=== PATIENT | female | born 1945 | race Hispanic/Latino ===

== ENCOUNTER 2019-08-24 16:06 | Emergency (ER) | payer MEDICARE, OTHER ==
[2019-08-24] MEDS ORDERED: ACETAMINOPHEN 325 MG TAB ONE (16:56)
[2019-08-24] MEDS ORDERED: CEPHALEXIN 500 MG CAPSULE ONE (16:56)
[2019-08-24] MEDS ORDERED: TETANUS/DIPHTHERIA TOXOID [ADULT] 0.5 ML VIAL IM ONE (16:57)
== END 2019-08-24 17:09 | disposition home or self-care (01) ==
LOC: EDH 16:06
DX: S91.331A Puncture wound without foreign body, right foot, initial encounter (principal); S90.31XA Contusion of right foot, initial encounter; Z72.0 Tobacco use; Z79.899 Other long term (current) drug therapy; W26.0XXA Contact with knife, initial encounter; Y93.89 Activity, other specified; Y92.89 Other specified places as the place of occurrence of the external cause; Y99.8 Other external cause status
CPT/HCPCS: 73630; 90471; 90714

== ENCOUNTER → 2020-12-22 | Outpatient (CLI) | payer MEDICARE, OTHER ==
[2020-12-22 09:59] LABS: INR 1.05 (0.85-1.15); PROTHROMBIN TIME 11.4 SEC (9.6-11.6)
[2020-12-22 10:00] LABS: PARTIAL THROMBOPLASTIN TIME 28.8 SEC (26.3-35.5)
== END | disposition home or self-care (01) ==
LOC: RAH 08:54
PROVIDERS: ATTEND Internal Medicine
DX: E04.2 Nontoxic multinodular goiter (principal); Z79.01 Long term (current) use of anticoagulants
CPT/HCPCS: 10005; 10006; 36415; 76942; 85610; 85730

== ENCOUNTER 2021-12-11 08:39 | Emergency (ER) | payer MEDICARE, OTHER ==
[~2021-12-11] VITALS: Ht 152.4 cm; Wt 81.6 kg
[2021-12-11 09:10] LABS: BASOPHILS % (AUTO) 0.4 % (0.0-5.0); EOSINOPHILS % (AUTO) 1.9 % (0.0-8.0); HEMATOCRIT 40.6 % (36-48); LYMPHOCYTES % (AUTO) 27.8 % (21.0-51.0); MEAN CORPUSCULAR HEMOGLOBIN 29.6 pg (27.0-33.0); MEAN CORPUSCULAR VOLUME 89.8 fL (79-99); MONOCYTES % (AUTO) 6.4 % (3.0-13.0); NEUTROPHILS % (AUTO) 63.1 % (40.0-77.0); PLATELET COUNT (AUTO) 230 K/uL (130-400); RED BLOOD CELL COUNT(AUTO) 4.52 MIL/uL (4.00-5.50); RED CELL DISTRIBUTION WIDTH 14.6 % (11.0-15.5); WHITE BLOOD COUNT (AUTO) 8.4 K/uL (4.8-10.8)
[2021-12-11] MEDS ORDERED: SUCRALFATE 1 GM TABLET ONE (09:12)
[2021-12-11] MEDS ORDERED: FAMOTIDINE 20MG VIAL IV ONE ×2 (09:13→09:30)
[2021-12-11] MEDS ORDERED: SUCRALFATE 1 GM TABLET PO SCH (09:30)
[2021-12-11 09:31] LABS: CARBON DIOXIDE 28 mmol/L (21-32); CHLORIDE 105 mmol/L (101-111); CREATININE 0.7 mg/dL (0.5-1.5); GLOMERULAR FILTR. RATE CALC 87 mL/min (>60); GLUCOSE,RANDOM 132 mg/dL (70-105); POTASSIUM 3.9 mmol/L (3.5-5.1); SODIUM SERUM 141 mmol/L (136-145); UREA NITROGEN, BLOOD 14 mg/dL (7-18)
[2021-12-11 09:36] LABS: ALANINE AMINOTRANSFERASE 66 U/L (12-78); ALBUMIN 3.7 g/dL (3.5-5.0); ASPARTATE AMINOTRANSFERASE 86 U/L (10-37); TOTAL PROTEIN, SERUM 7.5 g/dL (6.0-8.3)
[2021-12-11] MEDS ORDERED: MAG/ALUM/SIMETH 30 ML UDCUP PO ONE (10:00)
[2021-12-11] MEDS ORDERED: HYOSCYAMINE SULFATE 0.125 MG TAB.SUBL SL SCH (10:00)
[2021-12-11] MEDS ORDERED: PANTOPRAZOLE 40 MG/VIAL IVP ONE (10:00)
[2021-12-11] MEDS ORDERED: ONDANSETRON 4MG INJ ONE (10:45)
[2021-12-11] MEDS ORDERED: MORPHINE 2 MG SYG ONE (10:45)
[2021-12-11] MEDS ORDERED: ONDANSETRON 4MG INJ IVP ONE (11:00)
[2021-12-11] MEDS ORDERED: MORPHINE 2 MG SYG IVP ONE (11:00)
[2021-12-11] MEDS ORDERED: HYOS0.124 SL (14:24)
[2021-12-11] MEDS ORDERED: SUCR1TAB28 PO (14:24)
[2021-12-11 14:51] VITALS: BP 144/76
== END 2021-12-11 14:52 | disposition home or self-care (01) ==
LOC: EDH 08:39
DX: R10.13 Epigastric pain (principal); T40.2X5A Adverse effect of other opioids, initial encounter; Y92.89 Other specified places as the place of occurrence of the external cause
CPT/HCPCS: 99285; 96374; 96375; 71045; 83735; 84484 ×2; 80053; 83880; 85025; 36415; 93005 ×2; J3490; J2405; C9113

== ENCOUNTER 2022-02-12 20:22 | Emergency (ER) | payer OTHER ==
[~2022-02-12] VITALS: Ht 152.4 cm; Wt 80.7 kg
[~2022-02-12 20:22] MED LIST: HYOS0.124 SL; SUCR1TAB28 PO
[2022-02-12 20:51] LABS: BASOPHILS % (AUTO) 0.5 % (0.0-5.0); HEMATOCRIT 41.6 % (36-48); LYMPHOCYTES % (AUTO) 23.4 % (21.0-51.0); MEAN CORPUSCULAR HEMOGLOBIN 29.4 pg (27.0-33.0); MEAN CORPUSCULAR HGB CONC 32.9 g/dL (32.0-36.0); MEAN CORPUSCULAR VOLUME 89.3 fL (79-99); MONOCYTES % (AUTO) 9.7 % (3.0-13.0); PLATELET COUNT (AUTO) 253 K/uL (130-400); RED BLOOD CELL COUNT(AUTO) 4.66 MIL/uL (4.00-5.50); RED CELL DISTRIBUTION WIDTH 14.1 % (11.0-15.5); WHITE BLOOD COUNT (AUTO) 11.4 K/uL (4.8-10.8)
[2022-02-12 21:00] LABS: CREATININE 0.9 mg/dL (0.5-1.5); POTASSIUM 3.6 mmol/L (3.5-5.1)
[2022-02-12 21:04] LABS: ALBUMIN 3.9 g/dL (3.5-5.0); TOTAL PROTEIN, SERUM 7.8 g/dL (6.0-8.3)
[2022-02-12] MEDS ORDERED: ONDANSETRON 4MG INJ ONE (21:22)
[2022-02-12] MEDS ORDERED: HYDROMORPHONE 0.5 MG SYG (0.5MG/0.5ML) IVP ONE (21:30)
[2022-02-12] MEDS ORDERED: ONDANSETRON 4MG INJ IVP ONE (21:30)
[2022-02-12] MEDS ORDERED: IBUP-1493 PO (22:12)
[2022-02-12 22:24] VITALS: BP 165/70
== END 2022-02-12 22:48 | disposition home or self-care (01) ==
LOC: EDH 20:22
DX: M54.42 Lumbago with sciatica, left side (principal); E11.9 Type 2 diabetes mellitus without complications; E78.00 Pure hypercholesterolemia, unspecified; I10 Essential (primary) hypertension; Z90.49 Acquired absence of other specified parts of digestive tract; Z90.710 Acquired absence of both cervix and uterus; Z95.1 Presence of aortocoronary bypass graft
CPT/HCPCS: 99284; 74176; 96374; 96375; 80053; 83690; 85025; 36415; J2405; J1170

== ENCOUNTER → 2022-03-06 | Outpatient (CLI) | payer OTHER ==
[~2022-03-06] MED LIST changes: +IBUP-1493 PO
== END | disposition home or self-care (01) ==
LOC: RAH 10:15
PROVIDERS: ATTEND Internal Medicine
DX: E04.2 Nontoxic multinodular goiter (principal)
CPT/HCPCS: 76536

== ENCOUNTER 2022-09-24 09:43 | Emergency (ER) | payer OTHER ==
[~2022-09-24] VITALS: Ht 152.4 cm; Wt 78.9 kg
[2022-09-24 10:22] LABS: BASOPHILS % (AUTO) 0.7 % (0.0-5.0); EOSINOPHILS % (AUTO) 2.9 % (0.0-8.0); HEMATOCRIT 45.2 % (36-48); LYMPHOCYTES % (AUTO) 38.3 % (21.0-51.0); MEAN CORPUSCULAR HEMOGLOBIN 28.9 pg (27.0-33.0); MEAN CORPUSCULAR HGB CONC 32.5 g/dL (32.0-36.0); MEAN CORPUSCULAR VOLUME 88.8 fL (79-99); MONOCYTES % (AUTO) 7.1 % (3.0-13.0); NEUTROPHILS % (AUTO) 50.7 % (40.0-77.0); PLATELET COUNT (AUTO) 244 K/uL (130-400); RED BLOOD CELL COUNT(AUTO) 5.09 MIL/uL (4.00-5.50); RED CELL DISTRIBUTION WIDTH 14.6 % (11.0-15.5); WHITE BLOOD COUNT (AUTO) 7.6 K/uL (4.8-10.8)
[2022-09-24 10:36] LABS: CREATININE 0.8 mg/dL (0.5-1.5); POTASSIUM 4.1 mmol/L (3.5-5.1); TOTAL PROTEIN, SERUM 7.3 g/dL (6.0-8.3)
[2022-09-24 10:40] LABS: APPEARANCE,URINE CLOUDY (CLEAR); BILIRUBIN,URINE NEGATIVE (NEGATIVE); COLOR,URINE LIGHT-ORANGE (YELLOW); GLUCOSE, URINE (UA) NEGATIVE (NEGATIVE); KETONES,URINE NEGATIVE (NEGATIVE); LEUKOCYTE ESTERASE ,URINE NEGATIVE Leu/uL (NEGATIVE); NITRATE,URINE NEGATIVE (NEGATIVE); OCCULT BLOOD,URINE LARGE (NEGATIVE); PROTEIN,URINE 50 mg/dL (NEGATIVE); UROBILINOGEN,URINE 0.2 mg/dL (0.2-1.0)
[2022-09-24 10:43] LABS: BACTERIA,URINE RARE /HPF (None Seen); CALCIUM OXALATE CRYSTALS,UR MANY /LPF (None Seen); MUCUS,URINE RARE LPF (None Seen); RBC,URINE TNTC /HPF (0-1); SQUAMOUS EPITHELIAL CELL,UR RARE /HPF (0-2); TRANSITIONAL EPI CELLS,URINE RARE /HPF (None Seen)
[2022-09-24] MEDS ORDERED: MORPHINE 4 MG SYG ONE (11:09)
[2022-09-24] MEDS ORDERED: ONDANSETRON 4MG INJ ONE (11:09)
[2022-09-24] MEDS ORDERED: ONDANSETRON 4MG INJ IVP ONE (11:30)
[2022-09-24] MEDS ORDERED: MORPHINE 4 MG SYG IM ONE (11:30)
[2022-09-24] MEDS ORDERED: KETOROLAC 30MG VIAL (30MG/ML) IVP ONE (12:30)
[2022-09-24] MEDS ORDERED: TAMS-1 PO (12:53)
[2022-09-24] MEDS ORDERED: KETO10TA2 PO (12:53)
[2022-09-24 13:43] VITALS: BP 153/70
[2022-09-24] MEDS ORDERED: TRAM50TA4 PO (13:46)
== END 2022-09-24 13:59 | disposition home or self-care (01) ==
LOC: EDH 09:43
DX: N13.2 Hydronephrosis with renal and ureteral calculous obstruction (principal); E11.9 Type 2 diabetes mellitus without complications; E78.00 Pure hypercholesterolemia, unspecified; I10 Essential (primary) hypertension; Z79.1 Long term (current) use of non-steroidal anti-inflammatories (NSAID); Z90.49 Acquired absence of other specified parts of digestive tract
CPT/HCPCS: 99285; 74176; 96374; 71045; 96375; 84484; 80053; 85025; 87088; 83605; 81001; 36415; 93005; J2405; J2270; J1885

== ENCOUNTER 2022-11-24 16:13 | Emergency (ER) | payer OTHER ==
[~2022-11-24] VITALS: Ht 152.4 cm; Wt 78.0 kg
[~2022-11-24 16:13] MED LIST changes: +KETO10TA2 PO; +TAMS-1 PO; +TRAM50TA4 PO
[2022-11-24 16:14] VITALS: BP 152/59
[2022-11-24 16:53] LABS: APPEARANCE,URINE CLOUDY (CLEAR); BILIRUBIN,URINE NEGATIVE (NEGATIVE); COLOR,URINE YELLOW (YELLOW); GLUCOSE, URINE (UA) NEGATIVE (NEGATIVE); KETONES,URINE NEGATIVE (NEGATIVE); LEUKOCYTE ESTERASE ,URINE 250 Leu/uL (NEGATIVE); NITRATE,URINE NEGATIVE (NEGATIVE); OCCULT BLOOD,URINE NEGATIVE (NEGATIVE); PH,URINE 5.5 (5.0-8.0); PROTEIN,URINE NEGATIVE (NEGATIVE); UROBILINOGEN,URINE 0.2 mg/dL (0.2-1.0)
[2022-11-24 17:32] LABS: MUCUS,URINE RARE LPF (None Seen); SQUAMOUS EPITHELIAL CELL,UR FEW /HPF (0-2)
== END 2022-11-24 16:44 | disposition home or self-care (01) ==
LOC: EDH 16:13
DX: R10.13 Epigastric pain (principal); Z53.21 Procedure and treatment not carried out due to patient leaving prior to being seen by health care provider
CPT/HCPCS: 81001; 87088; 99281

== ENCOUNTER 2023-01-28 19:11 | Emergency (ER) | payer OTHER ==
[~2023-01-28] VITALS: Ht 152.4 cm; Wt 78.5 kg
[2023-01-28 19:13] VITALS: BP 145/73; PULSE 87; RESP 16
[2023-01-29] MEDS ORDERED: GABA-529 PO (17:27)
== END 2023-01-28 21:53 | disposition left against medical advice (07) ==
LOC: EDH 19:11
DX: R26.2 Difficulty in walking, not elsewhere classified (principal); M79.605 Pain in left leg; M79.604 Pain in right leg; Z53.21 Procedure and treatment not carried out due to patient leaving prior to being seen by health care provider

== ENCOUNTER 2023-01-29 08:36 | Emergency (ER) | payer OTHER ==
[~2023-01-29] VITALS: Ht 152.4 cm; Wt 78.5 kg
[2023-01-29] MEDS ORDERED: HYDROCODONE/ACETAMINOPHEN 5/325 MG TAB PO ONE (12:00)
[2023-01-29 12:06] LABS: BASOPHILS # (AUTO) 0.04 K/uL (0.00-0.20); BASOPHILS % (AUTO) 0.6 % (0.0-5.0); EOSINOPHILS # (AUTO) 0.18 K/uL (0.00-0.70); EOSINOPHILS % (AUTO) 2.6 % (0.0-8.0); HEMATOCRIT 37.9 % (36-48); IMMATURE GRANULOCYTE ABSOLUTE 0.02 K/uL (0-1); LYMPHOCYTES # (AUTO) 2.3 K/uL (1.0-4.8); LYMPHOCYTES % (AUTO) 33.4 % (21.0-51.0); MEAN CORPUSCULAR HGB CONC 33.5 g/dL (32.0-36.0); MEAN CORPUSCULAR VOLUME 89.4 fL (79-99); MONOCYTES # (AUTO) 0.8 K/uL (0.1-1.0); MONOCYTES % (AUTO) 11.1 % (3.0-13.0); NEUTROPHILS # (AUTO) 3.6 K/uL (1.8-7.7); PLATELET COUNT (AUTO) 254 K/uL (130-400); RED BLOOD CELL COUNT(AUTO) 4.24 MIL/uL (4.00-5.50); RED CELL DISTRIBUTION WIDTH 13.7 % (11.0-15.5); WHITE BLOOD COUNT (AUTO) 6.8 K/uL (4.8-10.8)
[2023-01-29 12:18] LABS: CREATININE 0.6 mg/dL (0.5-1.5); POTASSIUM 3.8 mmol/L (3.5-5.1)
[2023-01-29 12:22] LABS: BILIRUBIN,TOTAL 0.3 mg/dL (0.2-1.0); TOTAL PROTEIN, SERUM 6.9 g/dL (6.0-8.3)
[2023-01-29] MEDS ORDERED: MAG/ALUM/SIMETH 30 ML UDCUP PO ONE (13:30)
[2023-01-29] MEDS ORDERED: ASPIRIN 325MG TAB PO ONE (13:30)
[2023-01-29] MEDS ORDERED: IOHEXOL 350 MG/ML 100ML INFUS..BTL IV ONE (14:28)
[2023-01-29 16:55] VITALS: BP 129/63; PULSE 74; RESP 17; O2SAT 97
[2023-01-29] MEDS ORDERED: GABA-529 PO (17:27)
== END 2023-01-29 17:36 | disposition home or self-care (01) ==
LOC: EDH 08:36
DX: M54.16 Radiculopathy, lumbar region (principal); E11.9 Type 2 diabetes mellitus without complications; E78.00 Pure hypercholesterolemia, unspecified; I10 Essential (primary) hypertension; Z90.49 Acquired absence of other specified parts of digestive tract; Z95.1 Presence of aortocoronary bypass graft
CPT/HCPCS: 99285; 71270; 93971; 71045; 82550; 84484; 84550; 80053; 83880; 85025; 85378; 86140; 36415; 73610; 73590; 72131; 93005; Q9967

== ENCOUNTER 2023-07-01 09:56 | Emergency (ER) | payer OTHER ==
[~2023-07-01] VITALS: Ht 152.4 cm; Wt 77.1 kg
[~2023-07-01 09:56] MED LIST changes: +GABA-529 PO
[2023-07-01 10:18] LABS: BASOPHILS # (AUTO) 0.05 K/uL (0.00-0.20); BASOPHILS % (AUTO) 0.4 % (0.0-5.0); EOSINOPHILS # (AUTO) 0.14 K/uL (0.00-0.70); EOSINOPHILS % (AUTO) 1.1 % (0.0-8.0); HEMATOCRIT 43.7 % (36-48); IMMATURE GRANULOCYTE ABSOLUTE 0.03 K/uL (0-1); LYMPHOCYTES # (AUTO) 1.9 K/uL (1.0-4.8); LYMPHOCYTES % (AUTO) 15.4 % (21.0-51.0); MEAN CORPUSCULAR HEMOGLOBIN 29.8 pg (27.0-33.0); MEAN CORPUSCULAR HGB CONC 33.6 g/dL (32.0-36.0); MEAN CORPUSCULAR VOLUME 88.5 fL (79-99); MONOCYTES # (AUTO) 0.7 K/uL (0.1-1.0); MONOCYTES % (AUTO) 5.9 % (3.0-13.0); NEUTROPHILS # (AUTO) 9.5 K/uL (1.8-7.7); PLATELET COUNT (AUTO) 293 K/uL (130-400); RED BLOOD CELL COUNT(AUTO) 4.94 MIL/uL (4.00-5.50); WHITE BLOOD COUNT (AUTO) 12.4 K/uL (4.8-10.8)
[2023-07-01 10:27] LABS: CREATININE 0.8 mg/dL (0.5-1.5); POTASSIUM 3.7 mmol/L (3.5-5.1)
[2023-07-01 10:31] LABS: ALBUMIN 3.9 g/dL (3.5-5.0); BILIRUBIN,TOTAL 0.6 mg/dL (0.2-1.0); TOTAL PROTEIN, SERUM 8.1 g/dL (6.0-8.3)
[2023-07-01 10:41] LABS: B-TYPE NATRIURETIC PEPTIDE 23 pg/mL (0-100)
[2023-07-01 13:19] VITALS: BP 154/74; PULSE 82; RESP 18; O2SAT 98
== END 2023-07-01 13:38 | disposition home or self-care (01) ==
LOC: EDH 09:56
DX: R07.89 Other chest pain (principal); F41.9 Anxiety disorder, unspecified; I10 Essential (primary) hypertension; E11.9 Type 2 diabetes mellitus without complications; E78.00 Pure hypercholesterolemia, unspecified; Z79.899 Other long term (current) drug therapy; Z98.890 Other specified postprocedural states
CPT/HCPCS: 36415; 71045; 80053; 82550; 83880; 84484; 85025; 93005

== ENCOUNTER 2024-10-20 08:09 | Emergency (ER) | payer OTHER ==
[~2024-10-20] VITALS: Ht 152.4 cm; Wt 78.5 kg
[~2024-10-20 08:09] MED LIST changes: -TAMS-1 PO; +TAMS-55 PO
--- NOTE | 2024-10-20 09:19 | ERN ---
ED Note History of Present Illness Stated Complaint: RT LEG PAIN X 2 WEEKS Chief Complaint: Lower Extremity Pain/Injury Time Seen by MD: 08:17 Dictation: 79-year-old female presents to the ED for evaluation of right leg pain onset two weeks ago post fall. Patient states she slipped and fell on wet bricks and has been experiencing pain since then. Tylenol taken at 7:00 a.m.. Patient is complaining of right hip pain, but denies inability to bear weight, head injury, LOC or any other associated symptoms at this time. Allergies: Coded Allergies: No Known Allergies (Unverified Allergy, Unknown, 08/24/19) Home Meds Active Scripts Acetaminophen (Tylenol) 500 Mg Tab, 1 TAB PO [id number] PRN for pain or fever for 10 Days, #20 TAB 0 Refills Prov:ALEXANDRIA GUTIERREZ MD 10/20/24 Gabapentin (Gabapentin) 100 Mg Capsule, 100 MG PO DAILYDINNER for 10 Days, #10 CAP Prov:ESA KONG MD 01/29/23 Tramadol Hcl (Tramadol HCl) 50 Mg Tablet, 50 MG PO TID for pain, #15 TAB Prov:HWIOT ROPER MD 09/24/22 Tamsulosin HCl (Flomax) 0.4 Mg Cap.er.24h, 0.4 MG PO DAILY for 10 Days, #10 CAPSULE.DR Prov:HIWOT ROPER MD 09/24/22 Ketorolac Tromethamine (Ketorolac Tromethamine) 10 Mg Tablet, 10 MG PO TID for Q6hr for 10 Days, #40 TAB Prov:HIWOT ROPER MD 09/24/22 Ibuprofen (Motrin/Advil) 800 Mg Tab, 800 MG PO TID PRN for PAIN, #30 TAB Prov:KRISTA SAVAGE MD 02/12/22 Sucralfate (Carafate) 1 Gm Tablet, 1 GM PO QID PRN for ABDOMINAL PAIN, #15 TAB 0 Refills Prov:ESA KONG MD 12/11/21 Hyoscyamine Sulfate (Levsin-Sl) 0.125 Mg Tab.subl, 0.125 MG SL TID PRN for ABD PAIN, #15 TAB.SL 0 Refills Prov:ESA KONG MD 12/11/21 Past Medical History Past Medical History: Diabetes-Type II, High Cholesterol, Hypertension Surgical History: Cholecystectomy, Other Surgical History Other: D&C, RT KNEE, NOSE Family History: CAD, DM, HTN Social History: Negative Review of System Dictation Constitutional: Negative for fever,chills, and weight loss Eyes: Negative for injury, pain,redness, and discharge ENT: Negative for injury,pain or swelling Cardiovascular: Negative for chest pain, palpitations, and edema Respiratory: Negative for shortness of breath, cough, and wheezing, Abdomen/GI: Negative for abdominal pain, nausea, vomiting, diarrhea, and constipation Back: Negative for injury and pain : Negative for injury, bleeding and discharge MS/Extremity: Positive for right leg pain, hip pain Skin: Negative for rash, and discoloration Neuro: Negative for headache, weakness, numbness, tingling, and seizure Psych: Negative for suicide ideation, homicidal ideation, and hallucinations Initial Vital Sign VS Vital Signs Date Time Temp Pulse Resp B/P (MAP) Pulse Ox O2 Delivery O2 Flow Rate FiO2 10/20/24 08:12 97.9 76 16 146/64 97 Room Air* 0 21 Physical Exam Dictation General: awake, alert, NAD Head/Face: Normocephalic, atraumatic Eyes: PERRL, EOMI, vision at baseline ENT: oral cavity clear, TMs clear, no signs of infection Neck: Trachea midline, supple, no nuchal rigidity Cardiovascular: RRR, normal S1/S2, No MRGs, no JVD Respiratory: CTAB, no respiratory distress, No rales or wheezes Abdomen: Soft, non-tender, non-distended, normal bowel sounds, no guarding or rebound. Skin: Warm, dry, normal turgor, no rash MS/Extremity: Pulses equal, no cyanosis, neurovascular intact, right leg tenderness through tib fib area and hip area Neuro: COAx4, GCS 15, strength 5/5, CN 2-12 intact, normal cerebellar exam, normal gait, Psych: Normal behavior, mood, and affect normal ED Course ED Course Orders Procedure Category Date Status Time Hip Unilat 2-3vw Right RAD 10/20/24 Resulted 08:56 Tibia/Fibula 2vws Rt RAD 10/20/24 Resulted 08:56 Femur 2vw Right RAD 10/20/24 Resulted 08:56 Ketorolac PHA 10/20/24 Complete Tromethamine 15mg/Ml 09:00 Current Medications Medications (Trade) Dose Ordered Sig/Tip Route PRN Reason Start Time Stop Time Status Last Admin Dose Admin Ketorolac Tromethamine (toRADol) 15 mg ONCE ONCE IM 10/20/24 09:00 10/20/24 09:01 DC 10/20/24 09:39 Vital Signs Date Time Temp Pulse Resp B/P (MAP) Pulse Ox O2 Delivery O2 Flow Rate FiO2 10/20/24 08:12 97.9 76 16 146/64 97 Room Air 0 10/20/24 08:12 97.9 76 16 146/64 97 Room Air* 0 21 Medical Decision Making MDM MDM: Differential diagnosis: Right leg pain, fall, right leg contusion Rationale: Tests considered and ordered secondary to shared decision making include: labs, ECG and radiology Risk of complication and/or morbidity or mortality of patient management: None Medications-Per medication reconciliation Need for hospitalization: Patient does not meet criteria for hospitalization. Need for emergency major/minor surgery: No There are no social concerns with this patient. Prescription drug management Prescriptions will include symptomatic care I independently interpreted the test that were performed, results were reviewed by me and considered findings on radiology if ordered. DX & DISP Disposition: Discharge Departure Impression: Primary Impression: Contusion of right leg Condition: Stable Scripts Acetaminophen (Tylenol) 500 Mg Tab 1 TAB PO [id number] PRN for pain or fever for 10 Days, #20 TAB 0 Refills Prov: ALEXANDRIA GUTIERREZ MD 10/20/24 Referrals: GRETA HERCULES MD (PCP) ALEXANDRIA GUTIERREZ MD October 20, 2024 09:19
--- NOTE | 2024-10-20 09:26 | HMCIMG ---
Exam Type: FEMUR 2VW RIGHT, HIP UNILAT 2-3VW RIGHT Clinical Information: fall Comparison: None Findings: The bone examination is unremarkable. No fractures or dislocations are seen. No radiopaque foreign bodies are noted. There is no bone destruction to suggest osteomyelitis or tumor. The soft tissues are unremarkable. Impression: Normal exam.
--- NOTE | 2024-10-20 09:26 | HMCIMG ---
Exam Type: TIBIA/FIBULA 2VWS RT Clinical Information: fall Comparison: None Findings: The bone examination is unremarkable. No fractures or dislocations are seen. No radiopaque foreign bodies are noted. Soft tissues are preserved. IMPRESSION: Normal examination.
[2024-10-20] MEDS: ketOROlac 15MG/ML VIAL (15MG/ML) IM ONE (09:39)
[2024-10-20] MEDS ORDERED: ACET-66 PO (09:44)
[2024-10-20 09:50] VITALS: BP 155/68; PULSE 62; RESP 16; TEMP 97; O2SAT 98
== END 2024-10-20 10:41 | disposition home or self-care (01) ==
LOC: EDH 08:09
DX: S80.11XA Contusion of right lower leg, initial encounter (principal); E11.9 Type 2 diabetes mellitus without complications; E78.00 Pure hypercholesterolemia, unspecified; I10 Essential (primary) hypertension; Z90.49 Acquired absence of other specified parts of digestive tract; Z79.899 Other long term (current) drug therapy; W01.0XXA Fall on same level from slipping, tripping and stumbling without subsequent striking against object, initial encounter; Y93.89 Activity, other specified; Y92.89 Other specified places as the place of occurrence of the external cause; Y99.8 Other external cause status
CPT/HCPCS: 99284; 73502; 73552; 73590; 96372; J1885

== ENCOUNTER 2024-11-03 07:16 | Emergency (ER) | payer OTHER ==
[~2024-11-03] VITALS: Ht 152.4 cm; Wt 78.5 kg
[~2024-11-03 07:16] MED LIST changes: +ACET-66 PO
[2024-11-03 07:25] VITALS: BP 150/82; PULSE 66; RESP 18; TEMP 97.9; O2SAT 99
[2024-11-03] MEDS: ketOROlac 30MG VIAL (30MG/ML) IM ONE (07:39)
--- NOTE | 2024-11-03 08:01 | ERN ---
General Chief Complaint: Lower Extremity Pain/Injury Stated Complaint: RIGHT LEG PAIN Time Seen by MD: 07:19 Source: patient History of Present Illness Initial Comments Patient is a 79-year-old female coming in after she had a fall two weeks ago. She states that she was evaluated at ER on two separate occasions but they never got an x-ray of her right foot right ankle area. She states it she has been having discomfort in that area has not followed up with the PCP yet. She states that the pain is increased with ambulation. Allergies: Coded Allergies: No Known Allergies (Unverified Allergy, Unknown, 08/24/19) Home Meds Active Scripts Acetaminophen (Tylenol) 500 Mg Tab, 1 TAB PO [id number] PRN for pain or fever for 10 Days, #20 TAB 0 Refills Prov:ALEXANDRIA GUTIERREZ MD 10/20/24 Gabapentin (Gabapentin) 100 Mg Capsule, 100 MG PO DAILYDINNER for 10 Days, #10 CAP Prov:ESA KONG MD 01/29/23 Tramadol Hcl (Tramadol HCl) 50 Mg Tablet, 50 MG PO TID for pain, #15 TAB Prov:HIWOT ROPER MD 09/24/22 Tamsulosin HCl (Flomax) 0.4 Mg Cap.er.24h, 0.4 MG PO DAILY for 10 Days, #10 CAPSULE.DR Prov:HIWOT ROPER MD 09/24/22 Ketorolac Tromethamine (Ketorolac Tromethamine) 10 Mg Tablet, 10 MG PO TID for Q6hr for 10 Days, #40 TAB Prov:HIWOT ROPER MD 09/24/22 Ibuprofen (Motrin/Advil) 800 Mg Tab, 800 MG PO TID PRN for PAIN, #30 TAB Prov:KRISTA SAVAGE MD 02/12/22 Sucralfate (Carafate) 1 Gm Tablet, 1 GM PO QID PRN for ABDOMINAL PAIN, #15 TAB 0 Refills Prov:ESA KONG MD 12/11/21 Hyoscyamine Sulfate (Levsin-Sl) 0.125 Mg Tab.subl, 0.125 MG SL TID PRN for ABD PAIN, #15 TAB.SL 0 Refills Prov:ESA KONG MD 12/11/21 Past Medical History Past Medical History: Diabetes-Type II, High Cholesterol, Hypertension, Other Medical History Other: falls Past Surgical History: Other Surgical History Other: D&C, RT KNEE, NOSE Family History Family History: CAD, DM, HTN Social History Social History: Negative ROS Dictation CONSTITUTIONAL: No chills, no fever, no weakness, no diaphoresis, no malaise. HEAD/FACE: No signs of trauma. EENT: No eye pain, no blurred vision, no tearing, no double vision, no ear pain, no ear discharge, no nose pain, no nasal congestion, no throat pain, no throat swelling, no mouth pain. RESPIRATORY: No cough, no orthopnea, no SOB, no stridor, no wheezing. CARDIOVASCULAR: No chest pain, no edema, no palpitations, no syncope. GASTROINTESTINAL/ABDOMINAL: No abdominal pain, no constipation, no diarrhea, no nausea, no vomiting. GENITOURINARY: No abnormal discharge, no dysuria, no frequent urination, no hematuria. No complaints of pain in the genitals. MUSCULOSKELETAL: No back pain, no gout, joint pain, joint swelling, muscle pain, no muscle stiffness, no neck pain. INTEGUMENTARY: No change in color, no change in hair/nails, no dryness, no lesion, no lumps, no rash. NEUROLOGICAL/PSYCH: No anxiety, not depressed, no emotional problem, no headache, no numbness, no pre-existing deficit, no history of seizures, no tremors, no weakness. HEMATOLOGIC/LYMPHATIC: Not anemic, no history of blood clots, no apparent bleeding, no bruising, glands not swollen. All Systems Negative, Except as Noted. Physical Exam Physical Exam Dictation VITAL SIGNS: Reviewed. GENERAL APPEARANCE: Alert, oriented x3, no acute distress, obese. HEAD AND FACE: Non-traumatic. EYES: PERRL, pink conjunctivas, eyelid no trauma, anterior chamber clear. EARS: Pinnas intact and no signs of trauma or erythema. Ear canals clear and no discharge. TMs no erythema. NOSE: No discharge, no bleeding. OROPHARYNX: Mouth normal, teeth no caries, tongue pink. Pharynx clear, no erythema. Tonsils no exudates, no abscesses noted. Mucous membrane moist. NECK: Supple, non-tender, no thyromegaly, no masses, no JVD, no bruits. BREAST: Deferred. CHEST: No tenderness, no crepitus, no paradoxical movement, no retractions. LUNGS: Clear, well-ventilated, symmetric, no rales, no wheezing, no rhonchi, no stridor, good breath sounds bilaterally. HEART: Regular rate, regular rhythm, no murmur, no gallops. VASCULAR: No peripheral edema. ABDOMEN: Soft, positive bowel sounds, nondistended, no guarding, nontender, no rebound, no masses no hepatomegaly, no splenomegaly, no James's sign, no hernias. RECTAL: Deferred. GENITAL: Deferred. NEUROLOGICAL: Normal speech, gross motor function intact, gross sensory function intact. MUSCULOSKELETAL: Neck nontender, full range of motion, back nontender, full range of motion. EXTREMITIES: Nontender, full range of motion. Right foot tenderness on palpation, right ankle tenderness on palpation SKIN: Color pink, dry, no turgor, no rash, no lacerations, no abrasions, no contusions. LYMPHATICS: Deferred. Results Laboratory and Microbiology Labs Reviewed?: Yes EKG/XRAY/US/CT/MRI X-RAY Comment X-ray ankle-NAD X-ray foot-cuboid displaced fracture MDM MDM: Differential diagnosis: Ankle sprain, ankle fracture, foot sprain, Rationale: Tests considered and ordered secondary to shared decision making include: Previous outside records reviewed: Old ER visits. Risk of complication and/or morbidity or mortality of patient management: None Medications-Per medication reconciliation Patient is a 79-year-old female coming in to be evaluated for foot pain. Patient states that she has been x-rayed on two occasions before. She states that she fell down two weeks ago has been evaluated previously but states that her foot is still hurting. X-ray disclose the possible cuboid fracture. Patient will be discharged in stable condition with a diagnosis of cuboid fracture I did advised her appropriate follow up with PCP and or interior specialist for ongoing evaluation. Orthopedic shoe will be provided. ED Course Orders Procedure Category Date Status Time Ankle Comp 3vws Rt RAD 11/03/24 Taken 07:23 Foot Comp 3+Vws Rt RAD 11/03/24 Taken 07:23 Ketorolac PHA 11/03/24 Complete Tromethamine 30mg/Ml 07:30 Current Medications Medications (Trade) Dose Ordered Sig/Tip Route PRN Reason Start Time Stop Time Status Last Admin Dose Admin Ketorolac Tromethamine (toRADol) 30 mg ONCE ONCE IM 11/03/24 07:30 11/03/24 07:31 DC Vital Signs Date Time Temp Pulse Resp B/P (MAP) Pulse Ox O2 Delivery O2 Flow Rate FiO2 11/03/24 07:25 97.9 66 18 150/82 99 Room Air* 0 21 11/03/24 07:21 97.9 66 18 150/82 99 Room Air 0 DX & DISP Disposition: Discharge Departure Impression: Primary Impression: Closed right cuboid fracture Condition: Stable Additional Instructions: FOLLOW-UP WITH PRIMARY CARE PROVIDER IN 1 TO 2 DAYS. TAKE MEDICATIONS DIRECTED HERE IN THE EMERGENCY ROOM. OKAY TO CONTINUE HOME MEDICATIONS UNLESS OTHERWISE DISCUSSED DURING YOUR VISIT IN THE EMERGENCY ROOM TODAY. RETURN TO YOUR NEAREST EMERGENCY ROOM IF SYMPTOMS WORSEN OR IF THERE IS NO IMPROVEMENT. CALL 911 IF YOU NEED IMMEDIATE ASSISTANCE. TAKE TYLENOL [id number]-[id number]-[id number] NEEDED AND IF NO CONTRAINDICATIONS ARE PRESENT. INCREASE ORAL HYDRATION. A WOUND CULTURE OR URINE CULTURE WAS ORDERED HERE IN THE EMERGENCY ROOM DEPARTMENT PLEASE FOLLOW-UP WITH PRIMARY CARE PROVIDER AND ADVISE THEM TO GET REPORTS FROM OUR FACILITY. IF YOU HAD ANY MICHAEL WRAP/SPLINTS THAT WERE APPLIED HERE, PLEASE DO NOT REMOVE THEM UNTIL YOU SEE YOUR PRIMARY CARE OR SPECIALTY. Referrals: Referrals: GRETA HERCULES MD (PCP) MAKSIM COY MD Time of Disposition: 08:45 MARCELINO BECKETT MD Nov 03, 2024 08:01
--- NOTE | 2024-11-03 09:04 | HMCIMG ---
Exam Type: FOOT COMP 3+VWS RT Clinical Information: fall Comparison: None Findings: The examination is unremarkable except for calcaneal spurs. No fractures or dislocations are seen. No radiopaque foreign bodies are noted. Soft tissues are preserved. IMPRESSION: Calcaneal spurs.
--- NOTE | 2024-11-03 09:33 | HMCIMG ---
Exam Type: ANKLE COMP 3VWS RT Clinical Information: fall Comparison: None Findings: Routine views of the ankle reveal no evidence of acute fracture or dislocation. The ankle mortise is intact. There is soft tissue swelling over the lateral malleolus consistent with inversion injury. IMPRESSION: Evidence of inversion injury.
== END 2024-11-03 09:18 | disposition home or self-care (01) ==
LOC: EDH 07:16
DX: S92.211A Displaced fracture of cuboid bone of right foot, initial encounter for closed fracture (principal); E11.9 Type 2 diabetes mellitus without complications; E78.00 Pure hypercholesterolemia, unspecified; I10 Essential (primary) hypertension; Z79.899 Other long term (current) drug therapy; W18.39XA Other fall on same level, initial encounter; Y93.89 Activity, other specified; Y92.89 Other specified places as the place of occurrence of the external cause; Y99.8 Other external cause status
CPT/HCPCS: 73610; 73630; 99284